=== PATIENT | female | born 1965 | race Hispanic/Latino ===

== ENCOUNTER 2017-07-15 11:43 | Emergency (ER) | payer SELFPAY | END 2017-07-15 13:16 | disposition home or self-care (01) | LOC: EDH 11:43 | DX: B00.89 Other herpesviral infection (principal) | CPT/HCPCS: 99281 ==

== ENCOUNTER 2017-08-22 14:37 | Inpatient (IN) | payer SELFPAY ==
[~2017-08-22] VITALS: Ht 144.8 cm; Wt 66.7 kg
[2017-08-22 14:53] LABS: BASOPHILS % (AUTO) 0.5 % (0.0-5.0); HEMATOCRIT 40.2 % (36-48); LYMPHOCYTES % (AUTO) 37.2 % (21.0-51.0); MEAN CORPUSCULAR HEMOGLOBIN 27.5 pg (27.0-33.0); MEAN CORPUSCULAR HGB CONC 33.1 g/dL (32.0-36.0); MEAN CORPUSCULAR VOLUME 83.1 fL (79-99); NEUTROPHILS % (AUTO) 52.3 % (40.0-77.0); PLATELET COUNT (AUTO) 165 K/uL (130-400); RED BLOOD CELL COUNT(AUTO) 4.84 MIL/uL (4.00-5.50); RED CELL DISTRIBUTION WIDTH 13.6 % (11.0-15.5); WHITE BLOOD COUNT (AUTO) 8.7 K/uL (4.8-10.8)
[2017-08-22 15:04] LABS: CREATININE 0.6 mg/dL (0.5-1.5); INR 1.02 (0.85-1.15); PARTIAL THROMBOPLASTIN TIME 27.7 SEC (26.3-35.5); POTASSIUM 3.7 mmol/L (3.5-5.1); PROTHROMBIN TIME 10.7 SEC (9.6-11.6)
[2017-08-22 15:20] LABS: ALBUMIN 3.7 g/dL (3.5-5.0); BILIRUBIN,TOTAL 0.7 mg/dL (0.2-1.0); CREATINE KINASE MB 0.9 ng/mL (0.5-3.6); TOTAL PROTEIN, SERUM 8.4 g/dL (6.0-8.3)
[2017-08-22] MEDS ORDERED: ASPIRIN 325 MG TABLET ONE (15:36)
[2017-08-22] MEDS ORDERED: SODIUM CHLORIDE 0.9% 1000ML 1,000 ML IV ONE (15:37)
[2017-08-22 18:22] VITALS: BP 144/86
[2017-08-22] MEDS: SODIUM CHLORIDE 0.9% 1000ML 1,000 ML IV SCH (19:00)
[2017-08-22 19:44] VITALS: BP 128/76
[2017-08-22] MEDS ORDERED: ACETAMINOPHEN 325 MG TAB PO PRN (20:00)
[2017-08-22] MEDS ORDERED: ONDANSETRON HCL 4 MG/2 ML VIAL IV PRN (20:00)
[2017-08-22 23:53] VITALS: BP 103/67
[2017-08-23] MEDS: SODIUM CHLORIDE 0.9% 1000ML 1,000 ML IV SCH (04:19)
[2017-08-23 04:27] LABS: HEMATOCRIT 36.1 % (36-48); MEAN CORPUSCULAR HEMOGLOBIN 27.9 pg (27.0-33.0); MEAN CORPUSCULAR HGB CONC 33.7 g/dL (32.0-36.0); MEAN CORPUSCULAR VOLUME 82.7 fL (79-99); PLATELET COUNT (AUTO) 150 K/uL (130-400); RED BLOOD CELL COUNT(AUTO) 4.36 MIL/uL (4.00-5.50); RED CELL DISTRIBUTION WIDTH 13.2 % (11.0-15.5); WHITE BLOOD COUNT (AUTO) 5.5 K/uL (4.8-10.8)
[2017-08-23 04:38] LABS: BILIRUBIN,TOTAL 0.7 mg/dL (0.2-1.0); CREATININE 0.6 mg/dL (0.5-1.5); MAGNESIUM 1.9 mg/dL (1.80-2.40); PHOSPHORUS 3.5 mg/dL (2.5-4.9); POTASSIUM 3.8 mmol/L (3.5-5.1); THYROID STIMULATING HORMONE 2.14 uIU/mL (0.36-3.74); TOTAL PROTEIN, SERUM 7.1 g/dL (6.0-8.3)
[2017-08-23 05:01] VITALS: BP 114/72
[2017-08-23 07:49] VITALS: BP 128/79
[2017-08-23] MEDS ORDERED: ENOXAPARIN SODIUM 40 MG/0.4 ML SYRINGE SQ SCH (09:00)
[2017-08-23] MEDS ORDERED: ATORVASTATIN CALCIUM 40 MG TABLET PO SCH (09:00)
[2017-08-23] MEDS ORDERED: PANTOPRAZOLE SODIUM 40 MG TABLET.DR PO SCH (09:00)
[2017-08-23] MEDS ORDERED: ASPIRIN 325 MG TABLET PO SCH (09:00)
[2017-08-23 11:40] VITALS: BP 96/62
[2017-08-23] MEDS ORDERED: ATOR40TA69 PO (12:32)
[2017-08-23] MEDS ORDERED: ASPI-1012 PO (12:32)
[2017-08-23 16:23] VITALS: BP 108/60
== END 2017-08-23 17:10 | disposition home or self-care (01) | DRG 69 ==
LOC: EDH 14:37 → EDHIP 14:38 → 2AH 18:17
PROVIDERS: ADMIT Family Medicine; ATTEND Family Medicine
DX: G45.9 Transient cerebral ischemic attack, unspecified (principal); I10 Essential (primary) hypertension
CPT/HCPCS: 36415; 70450; 70551; 71045; 80053; 80061; 82550; 82553; 82948; 83735; 83874; 84100; 84443; 84484; 85025; 85027; 85610; 85730; 93005; 93306; 93880; J1650; J7030

== ENCOUNTER 2018-08-27 09:51 | Emergency (ER) | payer SELFPAY ==
[~2018-08-27 09:51] MED LIST: ASPI-1012 PO; ATOR40TA69 PO
[2018-08-27 10:13] LABS: BILIRUBIN,URINE Negative (NEGATIVE); COLOR,URINE Yellow (YELLOW); GLUCOSE, URINE (UA) Negative (NEGATIVE); KETONES,URINE Negative (NEGATIVE); LEUKOCYTE ESTERASE ,URINE Moderate (NEGATIVE); NITRATE,URINE Negative (NEGATIVE); OCCULT BLOOD,URINE Negative (NEGATIVE); PH,URINE 7.5 (5.0-8.0); PROTEIN,URINE Negative (NEGATIVE); UROBILINOGEN,URINE 0.2 mg/dL (0.2-1.0)
[2018-08-27 10:20] LABS: APPEARANCE,URINE CLEAR (CLEAR)
[2018-08-27 10:27] LABS: BACTERIA,URINE Rare /HPF (None Seen); RBC,URINE 0-1 /HPF (0-1); SQUAMOUS EPITHELIAL CELL,UR Rare /HPF (0-2); WBC,URINE 0-1 /HPF (0-1)
[2018-08-27 10:32] LABS: CREATININE 0.7 mg/dL (0.5-1.5); POTASSIUM 3.6 mmol/L (3.5-5.1)
[2018-08-27 10:33] LABS: BASOPHILS % (AUTO) 0.5 % (0.0-5.0); HEMATOCRIT 35.9 % (36-48); LYMPHOCYTES % (AUTO) 43.5 % (21.0-51.0); MEAN CORPUSCULAR HEMOGLOBIN 23.5 pg (27.0-33.0); MEAN CORPUSCULAR HGB CONC 31.9 g/dL (32.0-36.0); MEAN CORPUSCULAR VOLUME 73.7 fL (79-99); MONOCYTES % (AUTO) 8.6 % (3.0-13.0); NEUTROPHILS % (AUTO) 43.4 % (40.0-77.0); NUCLEATED RED BLOOD CELLS 0.1 % (0.0-0.19); PLATELET COUNT (AUTO) 180 K/uL (130-400); RED BLOOD CELL COUNT(AUTO) 4.87 MIL/uL (4.00-5.50); RED CELL DISTRIBUTION WIDTH 15.5 % (11.0-15.5); WHITE BLOOD COUNT (AUTO) 6.1 K/uL (4.8-10.8)
[2018-08-27 10:36] LABS: ALBUMIN 3.7 g/dL (3.5-5.0); BILIRUBIN,TOTAL 0.6 mg/dL (0.2-1.0); TOTAL PROTEIN, SERUM 8.7 g/dL (6.0-8.3)
[2018-08-27] MEDS ORDERED: METOCLOPRAMIDE 10 MG/2 ML VIAL ONE (11:01)
[2018-08-27] MEDS ORDERED: SODIUM CHLORIDE 0.9% 1000ML 1,000 ML IV ONE (11:01)
[2018-08-27] MEDS ORDERED: KETOROLAC TROMETHAMINE 15MG/ML ONE (11:01)
[2018-08-27] MEDS ORDERED: DiphenhydrAMINE HCL 50 MG/ML VIAL ONE (11:01)
== END 2018-08-27 12:41 | disposition home or self-care (01) ==
LOC: EDH 09:51
DX: G43.109 Migraine with aura, not intractable, without status migrainosus (principal)
CPT/HCPCS: 36415; 70450; 80053; 81001; 85025; 96374; 96375; 99284; J1200; J1885; J2765; J7030

== ENCOUNTER 2019-03-10 09:50 | Emergency (ER) | payer SELFPAY | END 2019-03-10 10:58 | disposition home or self-care (01) | LOC: EDH 09:50 | DX: S92.352A Displaced fracture of fifth metatarsal bone, left foot, initial encounter for closed fracture (principal); X58.XXXA Exposure to other specified factors, initial encounter; Y93.89 Activity, other specified; Y92.481 Parking lot as the place of occurrence of the external cause; Y99.8 Other external cause status | CPT/HCPCS: 73630 ==

== ENCOUNTER 2019-06-30 21:17 | Emergency (ER) | payer OTHER ==
[2019-06-30 21:51] LABS: BASOPHILS % (AUTO) 0.4 % (0.0-5.0); LYMPHOCYTES % (AUTO) 43.8 % (21.0-51.0); MEAN CORPUSCULAR HEMOGLOBIN 22.3 pg (27.0-33.0); MEAN CORPUSCULAR HGB CONC 29.7 g/dL (32.0-36.0); MEAN CORPUSCULAR VOLUME 75.2 fL (79-99); MONOCYTES % (AUTO) 7.7 % (3.0-13.0); NEUTROPHILS % (AUTO) 43.9 % (40.0-77.0); PLATELET COUNT (AUTO) 168 K/uL (130-400); RED BLOOD CELL COUNT(AUTO) 4.79 MIL/uL (4.00-5.50); RED CELL DISTRIBUTION WIDTH 15.9 % (11.0-15.5); WHITE BLOOD COUNT (AUTO) 8.1 K/uL (4.8-10.8)
[2019-06-30 21:59] LABS: APPEARANCE,URINE Clear (CLEAR); BILIRUBIN,URINE Negative (NEGATIVE); COLOR,URINE Yellow (YELLOW); GLUCOSE, URINE (UA) Negative (NEGATIVE); KETONES,URINE Negative (NEGATIVE); LEUKOCYTE ESTERASE ,URINE Large (NEGATIVE); NITRATE,URINE Negative (NEGATIVE); OCCULT BLOOD,URINE Negative (NEGATIVE); PH,URINE 5.5 (5.0-8.0); PROTEIN,URINE Negative (NEGATIVE); UROBILINOGEN,URINE 0.2 mg/dL (0.2-1.0)
[2019-06-30 22:06] LABS: BACTERIA,URINE Few /HPF (None Seen); RBC,URINE None Seen /HPF (0-1); SQUAMOUS EPITHELIAL CELL,UR 0-2 /HPF (0-2)
[2019-06-30 22:08] LABS: CREATININE 0.8 mg/dL (0.5-1.5); POTASSIUM 3.6 mmol/L (3.5-5.1)
[2019-06-30 22:12] LABS: ALBUMIN 3.7 g/dL (3.5-5.0); BILIRUBIN,TOTAL 0.5 mg/dL (0.2-1.0); TOTAL PROTEIN, SERUM 8.2 g/dL (6.0-8.3)
[2019-06-30 22:41] LABS: PLATELET MORPHOLOGY LARGE PLTS PRESENT
== END 2019-06-30 23:27 | disposition home or self-care (01) ==
LOC: EDH 21:17
DX: R42 Dizziness and giddiness (principal); H61.22 Impacted cerumen, left ear; Z98.890 Other specified postprocedural states
CPT/HCPCS: 36415; 69210; 70450; 71045; 80053; 81001; 82550; 84484; 85025; 87804; 93005

== ENCOUNTER 2019-10-03 23:03 | Emergency (ER) | payer SELFPAY | END 2019-10-03 23:37 | disposition home or self-care (01) | LOC: EDH 23:03 | DX: J02.9 Acute pharyngitis, unspecified (principal); Z98.890 Other specified postprocedural states | CPT/HCPCS: 99281 ==

== ENCOUNTER 2022-03-20 20:29 | Emergency (ER) | payer OTHER ==
[~2022-03-20] VITALS: Ht 157.5 cm; Wt 68.9 kg
[2022-03-20 20:31] VITALS: BP 169/85
[2022-03-20] MEDS ORDERED: OXYMETAZOLINE HCL SPRAY 15 ML BOTTLE ONE (22:16)
[2022-03-20] MEDS ORDERED: OXYMETAZOLINE HCL SPRAY 15 ML BOTTLE EN SCH (22:30)
== END 2022-03-20 22:24 | disposition home or self-care (01) ==
LOC: EDH 20:29
DX: R04.0 Epistaxis (principal); Z79.82 Long term (current) use of aspirin; Z79.899 Other long term (current) drug therapy
CPT/HCPCS: 99282

== ENCOUNTER 2024-06-28 16:26 | Emergency (ER) | payer BC ==
[~2024-06-28] VITALS: Ht 154.9 cm; Wt 64.4 kg
--- NOTE | 2024-06-28 17:27 | ERN ---
ED Note History of Present Illness Stated Complaint: FLU-LIKE SX Chief Complaint: Flu Symptoms Time Seen by MD: 17:04 Time Seen by Midlevel: 17:04 Dictation: The patient is a 59-year-old female with a history of who presents to the emergency department with complaints of fevers, fatigue, generalized body aches, nonproductive cough onset eight days ago. Patient reports she has been battling an upper respiratory infection. No other complaints reported. Allergies: Coded Allergies: No Known Drug Allergies (Verified Allergy, 04/11/12) Home Meds Active Scripts Atorvastatin Calcium (LIPITOR) 40 Mg Tablet, 40 MG PO DAILY for 30 Days, TAB Prov:DEAN MIDDLETON MD 08/23/17 Aspirin (ASPIRIN) 325 Mg Tablet, 325 MG PO DAILY for 30 Days, TAB Prov:DEAN MIDDLETON MD 08/23/17 Past Medical History Past Medical History: No Pertinent History Surgical History: RN Note Reviewed/Agreed w/PFSH: Yes Review of System Dictation Constitutional: Negative for,chills, and weight loss positive for fever Eyes: Negative for injury, pain,redness, and discharge ENT: Negative for injury,pain or swelling Cardiovascular: Negative for chest pain, palpitations, and edema Respiratory: Negative for shortness of breath, and wheezing, positive for cough Abdomen/GI: Negative for abdominal pain, nausea, vomiting, diarrhea, and c onstipation Back: Negative for injury and pain : Negative for injury, bleeding and discharge MS/Extremity: Negative for injury and deformity Skin: Negative for rash, and discoloration Neuro: Negative for headache, weakness , numbness, tingling, and seizure positive for generalized weakness Psych: Negative for suicide ideation, homicidal ideation, and hallucinations Initial Vital Sign VS Vital Signs Date Time Temp Pulse Resp B/P (MAP) Pulse Ox O2 Delivery O2 Flow Rate FiO2 06/28/24 16:29 98.8 94 16 140/67 100 Room Air 0 06/28/24 16:32 21 Physical Exam Dictation Vital Signs reviewed General Appearance: Alert, oriented x 3, no acute distress, well developed, nourished. Head and Face: non-traumatic. Eyes: PERRL, pink conjunctivas, eyelid no trauma, anterior chamber with arcus senilis. Ears: Pinnas intact and no signs of trauma or erythema ear canals clear and no discharge TM no erythema Nose: No discharge, no bleeding. Oropharynx: Mouth normal, tongue pink. pharynx clear,no erythema, tonsils no exudates, no abscesses noted, mucous membrane moist Neck: Supple, non-tender, no thyromegaly, no masses, no JVD, no bruits Breast:Deferred Chest:No tenderness, no crepitus, no paradoxical movement, no retractions Lungs:Clear, well-ventilated, symmetric, no rales, no wheezing, no rhonchi, no stridor, good breath sounds bilaterally Heart: Regular rate, regular rhythm, no murmur, no gallops Vascular: no peripheral edema, Abdomen: Soft, positive bowel sounds, nondistended, no guarding, nontender, no rebound, no masses no hepatomegaly, no splenomegaly, no Whittington's sign, no hernias. Rectal: Deferred Genital: Deferred Neurological: Normal speech, motor function intact, sensory function intact Musculoskeletal: Neck nontender, full range of motion, back nontender, full range of motion, Extremities: nontender, full range of motion Skin: Color pink, dry, no turgor, no rash, no lacerations, no abrasions, no contusions. Lymphatic: Deferred Results (Laboratory/Radiology) Laboratory/Radiology Laboratory Tests Test 06/28/24 18:08 Influenza Type A Antigen Positive For Type A Influenza Type B Antigen Negative For Type B SARS-CoV-2 Antigen (Rapid) PRESUMPTIVE NEGATIVE REASON: cough ORDERING PHYSICIAN: BAKARI ABDALLA LICSW PROCEDURE: CXR1VW - CHEST 1VW INDICATION: cough TECHNIQUE: CHEST 1VW COMPARISON: 06/30/2019 FINDINGS/IMPRESSION: Prominent bilateral interstitial markings which may represent bronchitis or vascular congestion in the proper clinical setting. Cardiac silhouette is within normal limits. Mild degenerative changes of the spine. The visualized upper abdomen appears unremarkable. Labs Reviewed?: Yes ED Course ED Course Orders Procedure Category Date Status Time Covid19 (Sars Antigen LAB 06/28/24 Complete Rapid) 17:25 Influenza Type A & B, LAB 06/28/24 Complete Rapid 17:25 Chest 1vw RAD 06/28/24 Resulted 17:25 Acetaminophen 500mg PHA 06/28/24 Complete Tab (Tylenol 500mg T 17:30 Current Medications Medications (Trade) Dose Ordered Sig/Anisha Route PRN Reason Start Time Stop Time Status Last Admin Dose Admin Acetaminophen (TYLenol 500MG TAB) 1,000 mg ONCE ONCE PO 06/28/24 17:30 06/28/24 17:31 DC 06/28/24 18:42 Vital Signs Date Time Temp Pulse Resp B/P (MAP) Pulse Ox O2 Delivery O2 Flow Rate FiO2 06/28/24 16:32 98.8 94 16 140/67 100 Room Air* 0 21 06/28/24 16:29 98.8 94 16 140/67 100 Room Air 0 Medical Decision Making MDM The patient is a 59-year-old female with a history of who presents to the emergency department with complaints of fevers, fatigue, generalized body aches, nonproductive cough onset eight days ago. Patient reports she has been battling an upper respiratory infection. No other complaints reported. Serology positive for flu A. Patient's symptoms longer than48 hours. No risk factors. Patient x-ray showed some increase markings. Patient continues in no distress, O2 saturations 98 on room air. Nontoxic appearing will be discharged to follow up with PCP. Differential diagnosis: Pneumonia, pneumothorax, upper respiratory infection Need for hospitalization: Patient does not meet criteria for hospitalization. There are no social concerns with this patient. DX & DISP Disposition: Discharge Departure Impression: Primary Impression: Influenza A Additional Impressions: Pneumonitis, Cough Condition: Stable Scripts Albuterol Sulfate (Ventolin Hfa/Proventil Hfa/Proair Hfa) 90 Mcg Puff 1 PUFF IH Q4H PRN for SHORTNESS OF BREATH for 5 Days, #1 INH 0 Refills PHARMACY TO DISPENSE 1 INHALER FOR USE Prov: BAKARI ABDALLA LICSW 06/28/24 Benzonatate (Tessalon Perles) 100 Mg Cap 100 MG PO TID for cough, #30 CAP 0 Refills Prov: BAKARI ABDALLA LICSW 06/28/24 Methylprednisolone (Medrol) 4 Mg Tab.ds.pk 4 MG PO AD for 6 Days, #1 PACK Day 1: Take 2 tablets before breakfast,1 tablet after lunch and supper, and 2 tablets at bedtime. Day 2: Take1 tablet before breakfast,1 tablet after lunch,1 tablet after supper, and 2 tablets at bedtime. Day 3: Take 1 tablet before breakfast, 1 tablet after lunch, 1 tablet after supper, and 1 tablet at bedtime. Day 4: Take 1 tablet before breakfast, 1 tablet after lunch, and 1 tablet at bedtime. Day 5: Take1 tablet before breakfast and 1 tablet at bedtime. Day 6: Take 1 tablet before breakfast. Prov: ABDALLA,BAKARI [facility] 06/28/24 Azithromycin (Zithromax) 250 Mg Tablet 250 MG PO AD for 5 Days, #6 TAB Take 2 250 mg tablets on day 1, then take 1 250mg tablets daily for 4 days Prov: BAKARI ABDALLA [facility] 06/28/24 Additional Instructions: Please follow up with your PCP in 1-2 days. Please return to ER if symptoms worsen FOLLOW-UP WITH PRIMARY CARE PROVIDER IN 1 TO 2 DAYS. TAKE MEDICATIONS DIRECTED HERE IN THE EMERGENCY ROOM. OKAY TO CONTINUE HOME MEDICATIONS UNLESS OTHERWISE DISCUSSED DURING YOUR VISIT IN THE EMERGENCY ROOM TODAY. RETURN TO YOUR NEAREST EMERGENCY ROOM IF SYMPTOMS WORSEN OR IF THERE IS NO IMPROVEMENT. CALL 911 IF YOU NEED IMMEDIATE ASSISTANCE. TAKE TYLENOL OR MOTRIN [id number] NEEDED AND IF NO CONTRAINDICATIONS ARE PRESENT. INCREASE ORAL HYDRATION. A WOUND CULTURE OR URINE CULTURE WAS ORDERED HERE IN THE EMERGENCY ROOM DEPARTMENT PLEASE FOLLOW-UP WITH PRIMARY CARE PROVIDER AND ADVISE THEM TO GET REPEAT PORTS FROM OUR FACILITY. IF YOU HAD ANY ELAINA WRAP/SPLINTS THAT WERE APPLIED HERE, PLEASE DO NOT REMOVE THEM UNTIL YOU SEE YOUR PRIMARY CARE OR SPECIALTY. Referrals: SELF,REFERRAL (PCP) Time of Disposition: 19:19 I have reviewed the case, and I agree with, Diagnosis and Plan ABDALLAKENJI BARRERALEN [facility] Jun 28, 2024 17:27
--- NOTE | 2024-06-28 18:32 | HMCIMG ---
INDICATION: cough TECHNIQUE: CHEST 1VW COMPARISON: 06/30/2019 FINDINGS/IMPRESSION: Prominent bilateral interstitial markings which may represent bronchitis or vascular congestion in the proper clinical setting. Cardiac silhouette is within normal limits. Mild degenerative changes of the spine. The visualized upper abdomen appears unremarkable.
[2024-06-28] MEDS: acetaMINOPHEN 500 MG TABLET PO ONE (18:42)
[2024-06-28 18:43] LABS: COVID19 (SARS ANTIGEN RAPID) PRESUMPTIVE NEGATIVE (NEGATIVE); INFLUENZA TYPE B Negative For Type B (NEGATIVE)
[2024-06-28 19:07] LABS: INFLUENZA TYPE A Positive For Type A (NEGATIVE)
[2024-06-28] MEDS ORDERED: METH4TAB3 PO (19:21)
[2024-06-28] MEDS ORDERED: ALBUHFA IH (19:21)
[2024-06-28] MEDS ORDERED: AZIT250T PO (19:21)
[2024-06-28] MEDS ORDERED: BENZ-39 PO (19:21)
[2024-06-28 19:35] VITALS: BP 138/65; PULSE 94; RESP 16; TEMP 98.7; O2SAT 98
== END 2024-06-28 19:40 | disposition home or self-care (01) ==
LOC: EDH 16:26
DX: J10.1 Influenza due to other identified influenza virus with other respiratory manifestations (principal); Z20.822 Contact with and (suspected) exposure to COVID-19; Z79.82 Long term (current) use of aspirin; Z79.899 Other long term (current) drug therapy; Z98.890 Other specified postprocedural states
CPT/HCPCS: 71045; 87426; 87804; 99283